=== PATIENT | female | born 1980 | race Caucasian/White ===

== ENCOUNTER 2018-09-27 03:04 | Inpatient (IN) | payer OTHER ==
[2018-09-27] MEDS ORDERED: NACL 0.9% 3 ML SYG IV (04:00)
[2018-09-27] MEDS ORDERED: ALBUTEROL/IPRATROPIUM (NEB) 3 ML AMP HHN (04:00)
[2018-09-27] MEDS ORDERED: HYDROCODONE/APAP (5/325) TAB PO (04:00)
[2018-09-27] MEDS: HYDROCODONE/APAP (5/325) TAB PO (04:10)
[2018-09-27] MEDS: SOD CHLORIDE 0.9% 1,000 ML IV ×3 (04:10→23:47)
[2018-09-27] MEDS: morphine 4 MG/ML VIAL IV ×4 (05:21→21:53)
[2018-09-27] MEDS: CEFTRIAXONE 1 GM/50 ML (PMX) 50 ML IVPB ×2 (05:41→16:47)
[2018-09-27 05:55] LABS: ADD MAN DIFF? NO
[2018-09-27 06:06] LABS: WHITE BLOOD COUNT 8.9 10^3/ul (4.8-10.8)
[2018-09-27 06:06] LABS: ABNORMAL IP MESSAGE 1; BASOPHILS % 0.1 % (0.0-2.0); HEMATOCRIT 34.6 % (37.0-47.0); HEMOGLOBIN 10.9 g/dl (12.0-16.0); LYMPHOCYTES # 0.5 10^3/ul (0.8-2.9); MEAN CORPUSCULAR HGB CONC 31.5 g/dl (32.0-37.0); MEAN CORPUSCULAR VOLUME 85.9 fl (82.0-101.0); MEAN PLATELET VOLUME 10.4 fl (7.4-10.4); MONOCYTE # 0.3 10^3/ul (0.3-0.9); MONOCYTES % 3.1 % (0.0-11.0); NEUTROPHILS % 90.2 % (39.0-77.0); PLATELET COUNT 171 10^3/UL (140-415); RED BLOOD COUNT 4.03 10^6/ul (4.20-5.40); RED CELL DISTRIBUTION WIDTH 14.6 % (11.5-14.5)
[2018-09-27 06:20] LABS: HEMOGLOBIN A1C 5.5 % (0-5.9)
[2018-09-27 06:24] LABS: CREATINE KINASE 79 IU/L (23-200)
[2018-09-27 06:25] LABS: POSITIVE DIFF @See below
[2018-09-27 06:26] LABS: ALANINE AMINOTRANSFERASE 19 IU/L (13-69); ALBUMIN 3.5 g/dl (3.3-4.9); ALKALINE PHOSPHATASE 51 IU/L (42-121); ANION GAP 12 (5-13); ASPARTATE AMINO TRANSFERASE 18 IU/L (15-46); BLOOD UREA NITROGEN 6 mg/dl (7-20); CALCIUM 8.3 mg/dl (8.4-10.2); CARBON DIOXIDE 21 mmol/L (21-31); CHLORIDE 105 mmol/L (97-110); CHOL/HDL RATIO 2.9 RATIO; CHOLESTEROL 143 mg/dl (100-200); CREATININE 0.59 mg/dl (0.44-1.00); Estimated GFR > 60 mL/min (>60); GLUCOSE 85 mg/dl (70-220); HDL CHOLESTEROL 48 mg/dl (34-82); LDL CHOLESTEROL,CALCULATED 83 mg/dl; MAGNESIUM 1.7 mg/dl (1.7-2.5); SODIUM 138 mmol/L (135-144); TOTAL PROTEIN 6.4 g/dl (6.1-8.1); TRIGLYCERIDES 61 mg/dl (0-149)
[2018-09-27 06:36] LABS: CK INDEX 0.3; CK-MB < 0.22 ng/ml (0.0-2.4); TROPONIN-I < 0.012 ng/ml (0.000-0.120)
[2018-09-27 06:54] LABS: THYROID STIMULATING HORMONE 0.478 MIU/L (0.465-4.680)
[2018-09-27 07:45] LABS: IRON 21 ug/dl (35-150)
[2018-09-27 07:54] LABS: % IRON SATURATION 6 % SAT (22-52); TOTAL IRON BINDING CAPACITY 332 ug/dl (241-421)
[2018-09-27 08:21] LABS: FERRITIN 29.1 ng/ml (6.2-137.0)
[2018-09-27] MEDS: ONDANSETRON 4 MG INJ IV (08:40)
[2018-09-27] MEDS: ACETAMINOPHEN 325 MG TAB PO ×2 (08:43→16:48)
[2018-09-27] MEDS: ASPIRIN 81 MG TAB PO (08:43)
[2018-09-27] MEDS: AZITHROMYCIN 500MG/NS (PMX) 250 ML IVPB (08:53)
[2018-09-27 09:37] LABS: ADD UMIC YES; UR ASCORBIC ACID NEGATIVE (NEGATIVE); UR BACTERIA FEW /HPF (NONE SEEN); UR BILIRUBIN (Dip) NEGATIVE (NEGATIVE); UR BLOOD (Dip) 2+ mg/dL (NEGATIVE); UR CLARITY CLEAR (CLEAR); UR COLOR YELLOW (YELLOW); UR GLUCOSE (Dip) NEGATIVE (NEGATIVE); UR KETONES (Dip) 2+ mg/dL (NEGATIVE); UR LEUKOCYTE ESTERASE (Dip) NEGATIVE Leu/ul (NEGATIVE); UR MUCUS FEW /HPF (NONE SEEN); UR NITRITE (Dip) NEGATIVE (NEGATIVE); UR RBC 1 /HPF (0-5); UR SQUAMOUS EPITHELIAL CELL FEW /HPF (FEW); UR TOTAL PROTEIN (Dip) NEGATIVE (NEGATIVE); UR UROBILINOGEN (Dip) NEGATIVE (NEGATIVE); UR WBC 2 /HPF (0-5)
[2018-09-27 11:56] LABS: CREATINE KINASE 125 IU/L (23-200)
[2018-09-27 12:09] LABS: CK INDEX 0.5; CK-MB 0.61 ng/ml (0.0-2.4); TROPONIN-I < 0.012 ng/ml (0.000-0.120)
[2018-09-27] MEDS: ENOXAPARIN 40 MG/0.4 ML SYG SC (12:34)
[2018-09-28] MEDS: SOD CHLORIDE 0.9% 1,000 ML IV (02:36)
[2018-09-28] MEDS: ACETAMINOPHEN 325 MG TAB PO ×2 (04:57→19:48)
[2018-09-28] MEDS: morphine 4 MG/ML VIAL IV ×4 (04:58→21:33)
[2018-09-28] MEDS: CEFTRIAXONE 1 GM/50 ML (PMX) 50 ML IVPB ×2 (05:06→17:01)
[2018-09-28 06:20] LABS: ADD MAN DIFF? NO
[2018-09-28 06:27] LABS: BASOPHILS % 0.2 % (0.0-2.0); EOSINOPHILS % 0.2 % (0.0-7.0); HEMATOCRIT 32.1 % (37.0-47.0); HEMOGLOBIN 10.2 g/dl (12.0-16.0); LYMPHOCYTES # 0.8 10^3/ul (0.8-2.9); LYMPHOCYTES % 9.2 % (15.0-51.0); MEAN CORPUSCULAR HEMOGLOBIN 26.8 pg (29.0-33.0); MEAN CORPUSCULAR HGB CONC 31.8 g/dl (32.0-37.0); MEAN CORPUSCULAR VOLUME 84.5 fl (82.0-101.0); MEAN PLATELET VOLUME 10.5 fl (7.4-10.4); MONOCYTE # 0.5 10^3/ul (0.3-0.9); MONOCYTES % 5.7 % (0.0-11.0); NEUTROPHIL # 7.3 10^3/ul (1.6-7.5); NEUTROPHILS % 84.5 % (39.0-77.0); PLATELET COUNT 163 10^3/UL (140-415); RED CELL DISTRIBUTION WIDTH 15.1 % (11.5-14.5)
[2018-09-28 06:27] LABS: WHITE BLOOD COUNT 8.7 10^3/ul (4.8-10.8)
[2018-09-28 07:34] LABS: ANION GAP 11 (5-13); BLOOD UREA NITROGEN 5 mg/dl (7-20); CALCIUM 8.3 mg/dl (8.4-10.2); CARBON DIOXIDE 20 mmol/L (21-31); CHLORIDE 108 mmol/L (97-110); CREATININE 0.48 mg/dl (0.44-1.00); Estimated GFR > 60 mL/min (>60); GLUCOSE 77 mg/dl (70-220); MAGNESIUM 1.7 mg/dl (1.7-2.5); PHOSPHORUS 1.8 mg/dl (2.5-4.9); POTASSIUM 3.8 mmol/L (3.5-5.1); SODIUM 139 mmol/L (135-144)
[2018-09-28] MEDS: ASPIRIN 81 MG TAB PO (08:41)
[2018-09-28] MEDS: AZITHROMYCIN 500MG/NS (PMX) 250 ML IVPB (08:41)
[2018-09-28] MEDS: ONDANSETRON 4 MG INJ IV ×2 (08:59→19:51)
[2018-09-28] MEDS: ENOXAPARIN 40 MG/0.4 ML SYG SC (09:21)
[2018-09-28] MEDS: POTASSIUM PHOSPHATE 20 MEQ in SOD CHLORIDE 0.9% 250 ML IVPB (15:39)
[2018-09-28] MEDS: HYDROCODONE/APAP (5/325) TAB PO (22:20)
== END 2018-09-28 22:35 | disposition home or self-care (01) | DRG 872 ==
LOC: 6WM 03:04
DX: A41.89 Other specified sepsis (principal); I95.1 Orthostatic hypotension; D64.9 Anemia, unspecified; B34.9 Viral infection, unspecified
CPT/HCPCS: 70450; 73030; 80048; 80053; 80061; 81001; 82550; 82553; 82728; 83036; 83540; 83735; 84100; 84443; 84484; 85025; 87040; 87081; 87086; 87400; 93306